=== PATIENT | male | born 1980 | race Caucasian/White ===

== ENCOUNTER 2019-07-08 17:31 | Emergency (ER) | payer OTHER ==
[2019-07-08] MEDS ORDERED: MORPHINE SULFATE INJ 10 MG/ML VIAL IM ONE (18:22)
[2019-07-08 18:23] VITALS: TEMP 97.3
--- NOTE | 2019-07-08 18:25 | ED.PDOC ---
History of Present Illness - General Chief Complaint: General Stated Complaint: chronic right shoulder pain Time Seen by Provider: 07/08/19 18:22 - History of Present Illness Initial Comments: Chronic R Shoulder Pain : stable on [place] : currently out of it , needs refill Allergies/Adverse Reactions: Allergies Penicillins Allergy (Verified 09/20/15 17:13) Home Medications: Ambulatory Orders Alprazolam [Xanax] 1 mg PO PRN 09/20/15 hydrOXYzine HCl [Atarax] 10 mg PO Q6HR PRN #12 tab 09/20/15 Review of Systems - Review of Systems Constitutional: States: no symptoms reported EENTM: States: no symptoms reported Respiratory: States: no symptoms reported Cardiology: States: no symptoms reported Gastrointestinal/Abdominal: States: no symptoms reported Genitourinary: States: no symptoms reported Musculoskeletal: States: see HPI Skin: States: no symptoms reported Neurological: States: no symptoms reported Endocrine: States: no symptoms reported Hematologic/Lymphatic: States: no symptoms reported Past Medical History (General) - Patient Medical History Hx Seizures: No Hx Stroke: No Hx Dementia: No Hx Asthma: No Hx of COPD: No Hx Cardiac Disorders: No Hx Congestive Heart Failure: No Hx Pacemaker: No Hx Hypertension: No Hx Thyroid Disease: No Hx Diabetes: No Hx Gastroesophageal Reflux: No Hx Renal Disease: No Hx Cancer: No Hx of HIV: No Hx Hepatitis C: No Hx MRSA: No - Vaccination History Hx Tetanus, Diphtheria Vaccination: Yes Hx Influenza Vaccination: No Hx Pneumococcal Vaccination: No - Social History Hx Tobacco Use: Yes Hx Alcohol Use: No Hx Substance Use: No Hx Substance Use Treatment: No Hx Depression: Yes - denies suicidal ideation Hx Physical Abuse: No Hx Emotional Abuse: No Hx Suspected Abuse: No - Female History Patient : No Family Medical History - Family History Mother Living Status: Still Living Hx Family Cancer: Yes - breast Physical Exam - Physical Exam General Appearance: Alert, Comfortable Eye Exam: bilateral normal Ears, Nose, Throat: hearing grossly normal, normal ENT inspection Respiratory: no respiratory distress, no accessory muscle use Back Exam: normal inspection Extremity: normal inspection, other - tenderness over the R shoulder Skin Exam: normal color, warm/dry Lymphatic: no adenopathy Departure - Departure Clinical Impression: Shoulder pain, right Time of Disposition: 18:25 Disposition: Discharge to Home or Self Care Condition: Good Departure Forms: ED Discharge - Pt. Copy, Patient Portal Self Enrollment Diet: resume usual diet Activity: increase activity as tolerated, walking as tolerated Home Medications: Ambulatory Orders Alprazolam [Xanax] 1 mg PO PRN 09/20/15 hydrOXYzine HCl [Atarax] 10 mg PO Q6HR PRN #12 tab 09/20/15 Additional Instructions: Refer to the Pain Clinic
[2019-07-08 19:00] VITALS: BP 148/110; O2SAT 97
== END 2019-07-08 18:59 | disposition home or self-care (01) ==
LOC: ER 17:31
DX: M25.511 Pain in right shoulder (principal); G89.29 Other chronic pain; F32.9 Major depressive disorder, single episode, unspecified; Z87.891 Personal history of nicotine dependence; Z88.0 Allergy status to penicillin

== ENCOUNTER 2020-05-16 17:22 | Emergency (ER) | payer OTHER ==
--- NOTE | 2020-05-16 17:52 | ED.PDOC ---
History of Present Illness - General Time Seen by Provider: 05/16/20 17:23 Source: patient, RN notes reviewed, Vital Signs reviewed Exam Limitations: no limitations - History of Present Illness Initial Comments: 39 yo RHD with chronic right shoulder pain after major surgery in 2004, comes in with recurrent right elbow pain. Pain 2-3 weeks. Has been trying to get into see a pain specialist, but unable to get an appointment. Does not have PCP. no new injury. 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 Allergies/Adverse Reactions: Allergies Penicillins Allergy (Verified 05/16/20 17:44) Home Medications: Ambulatory Orders HYDROcodone 7.5MG/APAP 325MG [[employer] [place] 7.5/325] 1 ea PO BID PRN 6 Days #12 tab 05/16/20 Prednisone 20 mg PO BID #10 tab 05/16/20 Review of Systems - Review of Systems Constitutional: Denies: chills, fever EENTM: Denies: blurred vision Respiratory: Denies: cough, short of breath Cardiology: Denies: chest pain, palpitations Gastrointestinal/Abdominal: Denies: abdominal pain, nausea Musculoskeletal: States: see HPI, joint pain, muscle pain Skin: Denies: rash Neurological: Denies: headache, numbness, paresthesia, weakness Endocrine: Denies: unexplained weight loss Hematologic/Lymphatic: Denies: easy bleeding, easy bruising Past Medical History (General) - Patient Medical History Hx Seizures: No Hx Stroke: No Hx Dementia: No Hx Asthma: No Hx of COPD: No Hx Cardiac Disorders: No Hx Congestive Heart Failure: No Hx Pacemaker: No Hx Hypertension: No Hx Thyroid Disease: No Hx Diabetes: No Hx Gastroesophageal Reflux: No Hx Renal Disease: No Hx Cancer: No Hx of HIV: No Hx Hepatitis C: No Hx MRSA: No - Vaccination History Hx Tetanus, Diphtheria Vaccination: Yes Hx Influenza Vaccination: No Hx Pneumococcal Vaccination: No - Social History Hx Tobacco Use: Yes Hx Alcohol Use: No Hx Substance Use: No Hx Substance Use Treatment: No Hx Depression: Yes - denies suicidal ideation Hx Physical Abuse: No Hx Emotional Abuse: No Hx Suspected Abuse: No - Female History Patient : No Family Medical History - Family History Mother Living Status: Still Living Hx Family Cancer: Yes - breast Physical Exam - Physical Exam General Appearance: Alert, Comfortable, No apparent distress, Well Developed, Well Groomed, Well Hydrated, Well Nourished Eye Exam: bilateral normal Ears, Nose, Throat: hearing grossly normal, normal ENT inspection, normal pharynx Neck: non-tender, full range of motion, supple, normal inspection Respiratory: chest non-tender, lungs clear, normal breath sounds, no respiratory distress, no accessory muscle use Cardiovascular/Chest: normal peripheral pulses, regular rate, rhythm, no edema, no gallop, no JVD, no murmur Peripheral Pulses: radial,right: 2+, radial,left: 2+ Gastrointestinal/Abdominal: normal bowel sounds, non tender, soft, no organomegaly Back Exam: normal inspection, no CVA tenderness, no vertebral tenderness Extremity: non-tender, normal inspection, no pedal edema, no calf tenderness, normal capillary refill, other - large surgical scar on left anterior shoulder, decrease active ROM, decrease supination ofright elbow with, full rom with passive rom, but painful. Neurologic: no motor/sensory deficits, alert, normal mood/affect, oriented x 3 DTR: 2+: Biceps, left, Biceps, right, Triceps, left, Triceps, right, Brachioradialis, left, Brachioradialis, right Skin Exam: normal color, warm/dry Comments: normal sensory, normal motor function, responds to pain. no swelling or erythema. Progress - Progress Progress: 05/16/20 18:04 It does not appear to be bone issue at this time I do not feel xray warranted. appears more ligamentous, muscular. The data reviewed when caring for this patient included: nurse notes, prior records, etc. The history and assessments from nurses notes were reviewed and considered, and the patient's home medication list was also reviewed and considered. My assessment and the results of testing completed here in the ED were discussed with the patient/family. All questions were answered, and they express understanding of my assessment and the plan. They have been instructed to return if their symptoms worsen, and have been asked to follow up with their primary care physician to recheck today's presenting complaint. Strict return precautions given. I have reviewed medication, benefits, alternatives and side effects. do not operate heavy machinery while on opoids. Patient decided to proceed with medication. Bernice Holliday DO #[id number] Departure - Departure Clinical Impression: Shoulder pain Qualifiers: Chronicity: chronic Laterality: left Qualified Code(s): M25.512 - Pain in left shoulder Elbow pain Qualifiers: Laterality: left Qualified Code(s): M25.522 - Pain in left elbow ICD-10 Supporting Text: elevated BP without diagnosis of Hypertension. Time of Disposition: 17:50 Disposition: Discharge to Home or Self Care Departure Forms: ED Discharge - Pt. Copy, Patient Portal Self Enrollment Instructions: Back Exercises, Overuse Injuries (DC) Diet: resume usual diet Activity: increase activity as tolerated Referrals: Tj Guillen MD [Active Staff] - 1-2 Weeks Semaj Pedroza MD [Active Staff] - 1-2 Weeks MATY DIANE MD [Active Staff] - 1-2 Weeks Prescriptions: HYDROcodone 7.5MG/APAP 325MG [[employer] [place] 7.5/325] 1 ea PO BID PRN 6 Days #12 tab PRN Reason: Pain Prednisone 20 mg PO BID #10 tab Home Medications: Ambulatory Orders HYDROcodone 7.5MG/APAP 325MG [[employer] [place] 7.5/325] 1 ea PO BID PRN 6 Days #12 tab 05/16/20 Prednisone 20 mg PO BID #10 tab 05/16/20
[2020-05-16 17:57] VITALS: TEMP 97.5; O2SAT 98
[2020-05-16 18:34] VITALS: BP 155/100
== END 2020-05-16 18:07 | disposition home or self-care (01) ==
LOC: ER 17:22
DX: M25.512 Pain in left shoulder (principal); G89.29 Other chronic pain; M25.522 Pain in left elbow; F32.9 Major depressive disorder, single episode, unspecified; Z98.890 Other specified postprocedural states; Z87.891 Personal history of nicotine dependence; Z88.0 Allergy status to penicillin